=== PATIENT | female | born 1995 | race American Indian/Alaskan Native ===

== ENCOUNTER 2017-07-29 11:05 | Emergency (ER) | payer SELFPAY ==
[2017-07-29 12:04] VITALS: BP 109/67
[2017-07-29] MEDS ORDERED: DUONEB *Not for PRN Use IH ONE (12:14)
--- NOTE | 2017-07-29 12:46 | Emergency Department Report ---
ED Asthma HPI - General Chief Complaint: Adult Asthma Stated Complaint: ASTHMA WHEEZING Time Seen by Provider: 07/29/17 12:31 Source: patient, old records reviewed Mode of arrival: Ambulatory Limitations: No Limitations - History of Present Illness -: Gradual, days(s) Asthma History: childhood onset Severity: mild Context: recent URI Associated Symptoms: dry cough. denies: productive cough, fever (CHILLS REPORTED), chest pain, hemoptysis, leg edema, syncope - Related Data Previous Rx's Medication Instructions Recorded Last Taken Type ALBUTEROL Inhaler [ProAir HFA 2 puff IH QID PRN #1 inhalation 07/29/17 Unknown Rx Inhaler] Amoxicillin 500 mg PO BID #20 capsule 07/29/17 Unknown Rx Fluticasone [Flonase] 1 spray NS QDAY #1 bottle 07/29/17 Unknown Rx predniSONE [Deltasone] 20 mg PO DAILY #5 tablet 07/29/17 Unknown Rx Allergies Allergy/AdvReac Type Severity Reaction Status Date / Time No Known Allergies Allergy Verified 04/06/14 01:42 ED Review of Systems ROS: Stated complaint: FLU LIKE SYMPTOMS Other details as noted in HPI Comment: All other systems reviewed and negative Constitutional: chills. denies: fever ENT: denies: ear pain, throat pain Respiratory: cough, wheezing. denies: orthopnea, shortness of breath, SOB with exertion, SOB at rest, stridor Cardiovascular: denies: chest pain, palpitations ED Past Medical Hx - Past Medical History Hx Hypertension: No Hx Congestive Heart Failure: No Hx Diabetes: No Hx Deep Vein Thrombosis: No Hx Renal Disease: No Hx Sickle Cell Disease: No Hx Seizures: No Hx Asthma: Yes Hx COPD: No Hx HIV: No - Surgical History Additional Surgical History: - Social History Smoking Status: Never Smoker Substance Use Type: None - Medications Home Medications: Home Medications Medication Instructions Recorded Confirmed Last Taken Type ALBUTEROL Inhaler [ProAir HFA 2 puff IH QID PRN #1 inhalation 07/29/17 Unknown Rx Inhaler] Amoxicillin 500 mg PO BID #20 capsule 07/29/17 Unknown Rx Fluticasone [Flonase] 1 spray NS QDAY #1 bottle 07/29/17 Unknown Rx predniSONE [Deltasone] 20 mg PO DAILY #5 tablet 07/29/17 Unknown Rx ED Physical Exam - General Limitations: No Limitations General appearance: alert - Head Head exam: Present: atraumatic - Eye Eye exam: Present: normal appearance, PERRL - ENT ENT exam: Present: mucous membranes moist - Neck Neck exam: Present: normal inspection - Respiratory Respiratory exam: Present: normal lung sounds bilaterally, wheezes. Absent: respiratory distress, rales, rhonchi, stridor, chest wall tenderness, accessory muscle use, decreased breath sounds, prolonged expiratory - Cardiovascular Cardiovascular Exam: Present: regular rate, normal rhythm - GI/Abdominal GI/Abdominal exam: Present: soft - Rectal Rectal exam: Present: deferred - Extremities Exam Extremities exam: Present: normal inspection - Back Exam Back exam: Present: normal inspection - Neurological Exam Neurological exam: Present: alert, oriented X3, CN II-XII intact, normal gait, reflexes normal - Psychiatric Psychiatric exam: Present: normal affect, normal mood - Skin Skin exam: Present: warm, dry, intact ED Course Vital Signs 07/29/17 07/29/17 07/29/17 12:00 12:55 13:08 Temperature 98.4 F Pulse Rate 110 H Pulse Rate [ 110 H 112 H Anterior Bilateral Throughout] Respiratory 18 Rate Respiratory 18 18 Rate [Anterior Bilateral Throughout] Blood Pressure 109/67 O2 Sat by Pulse 100 Oximetry - Reevaluation(s) Reevaluation #1: 07/29/17 13:15 improved p tx vss no sob playing on phone medicated dc home w dc poc ED Medical Decision Making - Medical Decision Making SEE NOTE - Differential Diagnosis ASTHMA AE Critical care attestation.: If time is entered above; I have spent that time in minutes in the direct care of this critically ill patient, excluding procedure time. ED Disposition Clinical Impression: Asthma, Asthma with acute exacerbation Disposition: DC-01 TO HOME OR SELFCARE Is pt being admited?: No Does the pt Need Aspirin: No Condition: Stable Instructions: Asthma (ED) Prescriptions: ALBUTEROL Inhaler [ProAir HFA Inhaler] 2 puff IH QID PRN #1 inhalation PRN Reason: Shortness Of Breath Amoxicillin 500 mg PO BID #20 capsule Fluticasone [Flonase] 1 spray NS QDAY #1 bottle predniSONE [Deltasone] 20 mg PO DAILY #5 tablet Referrals: PRIMARY CARE, [Primary Care Provider] - 3-5 Days MIRTHA HEARD MD [Staff Physician] - 3-5 Days Time of Disposition: 12:46
== END 2017-07-29 13:51 | disposition home or self-care (01) ==
LOC: ED 11:05
DX: J45.901 Unspecified asthma with (acute) exacerbation (principal)
CPT/HCPCS: 94640; 96372; 99282; J2930

== ENCOUNTER 2018-02-07 06:30 | Emergency (ER) | payer OTHER ==
[2018-02-07 06:42] VITALS: BP 102/64
[2018-02-07 07:13] LABS: Basophils % (Auto) 0.5 % (0.0-1.8); Eosinophils # (Auto) 0.2 K/mm3 (0.0-0.4); Eosinophils % (Auto) 3.6 % (0.0-4.3); Hematocrit 39.9 % (30.3-42.9); Hemoglobin 13.3 gm/dl (10.1-14.3); Lymphocytes # (Auto) 2.6 K/mm3 (1.2-5.4); Lymphocytes % (Auto) 37.5 % (13.4-35.0); Mean Corpuscular HGB Conc 33 % (30-34); Mean Corpuscular Hemoglobin 29 pg (28-32); Mean Corpuscular Volume 86 fl (79-97); Monocytes # (Auto) 0.4 K/mm3 (0.0-0.8); Monocytes % (Auto) 6.3 % (0.0-7.3); Platelet Count 209 K/mm3 (140-440); Red Blood Count 4.67 M/mm3 (3.65-5.03); Red Cell Distribution Width 13.8 % (13.2-15.2)
[2018-02-07 07:26] LABS: Bilirubin,Urine NEG (Negative); Blood,Urine NEG (Negative); Color,Urine Yellow (Yellow); Mucus,Urine 2+ /HPF; Urobilinogen,Urine < 2.0 mg/dL (<2.0)
[2018-02-07 07:30] LABS: Alanine Aminotransferase 14 units/L (7-56); Albumin 4.4 g/dL (3.9-5); BUN/Creatinine Ratio 21; Blood Urea Nitrogen 15 mg/dL (7-17); Calcium 9.5 mg/dL (8.4-10.2); Hemolysis Index 4
[2018-02-07 07:36] LABS: HCG Qualitative,Urine Negative (Negative)
--- NOTE | 2018-02-07 10:03 | Emergency Department Report ---
ED Female HPI - General Chief complaint: Abdominal Pain Stated complaint: ABD PAIN Time Seen by Provider: 02/07/18 09:12 Source: patient Mode of arrival: Ambulatory Limitations: No Limitations - History of Present Illness Initial comments: Ms elias is a 23 year-old woman without PMH who presents with pelvic pain. Is concerned that her IUD is out of position. She can still feel the strings, but feels different in her lower abdomen. Intermittent vaginal discharge. LMP . Pain in her lower abdomen is cramping and has been present for 2-3 days. No pain with urination. no blood in urine. Unrelated endorses some light headedness in the last 2-3 days, none now. Has had IUD x 3 years. MD Complaint: pelvic pain - Related Data Previous Rx's Medication Instructions Recorded Last Taken Type ALBUTEROL Inhaler [ProAir HFA 2 puff IH QID PRN #1 inhalation 07/29/17 Unknown Rx Inhaler] Amoxicillin 500 mg PO BID #20 capsule 07/29/17 Unknown Rx Fluticasone [Flonase] 1 spray NS QDAY #1 bottle 07/29/17 Unknown Rx predniSONE [Deltasone] 20 mg PO DAILY #5 tablet 07/29/17 Unknown Rx Allergies Allergy/AdvReac Type Severity Reaction Status Date / Time No Known Allergies Allergy Verified 02/07/18 06:37 ED Review of Systems ROS: Stated complaint: ABD PAIN Other details as noted in HPI Comment: All other systems reviewed and negative ED Past Medical Hx - Past Medical History Hx Hypertension: No Hx Congestive Heart Failure: No Hx Diabetes: No Hx Deep Vein Thrombosis: No Hx Renal Disease: No Hx Sickle Cell Disease: No Hx Seizures: No Hx Asthma: Yes Hx COPD: No Hx HIV: No - Surgical History Past Surgical History?: Yes Additional Surgical History: - Social History Smoking Status: Never Smoker Substance Use Type: Alcohol - Medications Home Medications: Home Medications Medication Instructions Recorded Confirmed Last Taken Type ALBUTEROL Inhaler [ProAir HFA 2 puff IH QID PRN #1 inhalation 07/29/17 Unknown Rx Inhaler] Amoxicillin 500 mg PO BID #20 capsule 07/29/17 Unknown Rx Fluticasone [Flonase] 1 spray NS QDAY #1 bottle 07/29/17 Unknown Rx predniSONE [Deltasone] 20 mg PO DAILY #5 tablet 07/29/17 Unknown Rx ED Physical Exam - General Limitations: No Limitations General appearance: alert, in no apparent distress - Head Head exam: Present: atraumatic, normocephalic - Eye Eye exam: Present: normal appearance - ENT ENT exam: Present: mucous membranes moist - Neck Neck exam: Present: normal inspection - Respiratory Respiratory exam: Present: normal lung sounds bilaterally. Absent: respiratory distress - Cardiovascular Cardiovascular Exam: Present: regular rate, normal rhythm. Absent: systolic murmur, diastolic murmur, rubs, gallop - GI/Abdominal GI/Abdominal exam: Present: soft, normal bowel sounds - External exam: Present: normal external exam. Absent: erythema, swelling, lesions Speculum exam: Present: vaginal discharge, cervical discharge, other (IUD strings in place. No CMT). Absent: erythema, vaginal bleeding, foreign body Bi-manual exam: Present: normal bi-manual exam. Absent: cervical motion tendernes, adnexal tenderness, adnexal mass, uterine enlargement - Extremities Exam Extremities exam: Present: normal inspection - Back Exam Back exam: Present: normal inspection - Neurological Exam Neurological exam: Present: alert, oriented X3 - Psychiatric Psychiatric exam: Present: normal affect, normal mood - Skin Skin exam: Present: warm, dry, intact, normal color. Absent: rash ED Course Vital Signs 02/07/18 06:38 Temperature 98.3 F Pulse Rate 88 Respiratory 18 Rate Blood Pressure 102/64 O2 Sat by Pulse 100 Oximetry ED Medical Decision Making - Lab Data Result diagrams: 02/07/18 06:57 02/07/18 06:56 Lab Results 02/07/18 02/07/18 02/07/18 Range/Units 06:56 06:57 07:04 WBC 6.8 (4.5-11.0) K/mm3 RBC 4.67 (3.65-5.03) M/mm3 Hgb 13.3 (10.1-14.3) gm/dl Hct 39.9 (30.3-42.9) % MCV 86 (79-97) fl MCH 29 (28-32) pg MCHC 33 (30-34) % RDW 13.8 (13.2-15.2) % Plt Count 209 (140-440) K/mm3 Lymph % (Auto) 37.5 H (13.4-35.0) % [place] % (Auto) 6.3 (0.0-7.3) % Eos % (Auto) 3.6 (0.0-4.3) % Baso % (Auto) 0.5 (0.0-1.8) % Lymph # 2.6 (1.2-5.4) K/mm3 [place] # 0.4 (0.0-0.8) K/mm3 Eos # 0.2 (0.0-0.4) K/mm3 Baso # 0.0 (0.0-0.1) K/mm3 Seg Neutrophils % 52.1 (40.0-70.0) % Seg Neutrophils # 3.6 (1.8-7.7) K/mm3 Sodium 141 (137-145) mmol/L Potassium 4.0 (3.6-5.0) mmol/L Chloride 104.9 (98-107) mmol/L Carbon Dioxide 24 (22-30) mmol/L Anion Gap 16 mmol/L BUN 15 (7-17) mg/dL Creatinine 0.7 (0.7-1.2) mg/dL Estimated GFR > 60 ml/min BUN/Creatinine Ratio 21 % Glucose 80 (65-100) mg/dL Calcium 9.5 (8.4-10.2) mg/dL Total Bilirubin 0.80 (0.1-1.2) mg/dL AST 16 (5-40) units/L ALT 14 (7-56) units/L Alkaline Phosphatase 82 (35-129) units/L Total Protein 7.4 (6.3-8.2) g/dL Albumin 4.4 (3.9-5) g/dL Albumin/Globulin Ratio 1.5 % Urine Color Yellow (Yellow) Urine Turbidity Hazy (Clear) Urine pH 5.0 (5.0-7.0) Ur Specific [place] 1.017 (1.003-1.030) Urine Protein 30 mg/dl (Negative) mg/dL Urine Glucose (UA) Neg (Negative) mg/dL Urine Ketones Neg (Negative) mg/dL Urine Blood Neg (Negative) Urine Nitrite Neg (Negative) Urine Bilirubin Neg (Negative) Urine Urobilinogen < 2.0 (<2.0) mg/dL Ur Leukocyte Esterase Neg (Negative) Urine WBC (Auto) 2.0 (0.0-6.0) /HPF Urine RBC (Auto) 1.0 (0.0-6.0) /HPF U Epithel Cells (Auto) 5.0 (0-13.0) /HPF Urine Mucus 2+ /HPF Urine HCG, Qual Negative (Negative) Microbiology 02/07/18 Unknown Vaginal Wet Prep - Final - Medical Decision Making Ms elias is a 23 year-old woman with pelvic pain. thinks her IUD is out of place. In place by exam, no uterine or cervical ttp. concerned she may have been exposed to STI, elects for empiric treatment of GC/CT. Wet prep negative. Not . Could be cramping prior to menses. GC/CT pending. Will refer her back to [facility] if pain persists. Will check back in 3-5 days for results of testing. Critical care attestation.: If time is entered above; I have spent that time in minutes in the direct care of this critically ill patient, excluding procedure time. ED Disposition Clinical Impression: Abdominal pain Qualifiers: Abdominal location: lower abdomen, unspecified Qualified Code(s): R10.30 - Lower abdominal pain, unspecified Disposition: DC-01 TO HOME OR SELFCARE Is pt being admited?: No Condition: Stable Instructions: Abdominal Pain (ED) Referrals: PRIMARY CARE, [Primary Care Provider] - 3-5 Days (See your [facility])
[2018-02-07] MEDS ORDERED: XYLOCAINE 1% MPF 5 mL INFILTRATI ONE (10:13)
[2018-02-07] MEDS ORDERED: ROCEPHIN IM ONE (10:13)
[2018-02-07] MEDS ORDERED: ZITHROMAX PO ONE (10:14)
== END 2018-02-07 11:26 | disposition home or self-care (01) ==
LOC: ED 06:30
DX: R10.2 Pelvic and perineal pain (principal); N89.8 Other specified noninflammatory disorders of vagina; R42 Dizziness and giddiness; J45.909 Unspecified asthma, uncomplicated
CPT/HCPCS: 36415; 80053; 81001; 81025; 85025; 87210; 87591; 96372; 99284; J0696

== ENCOUNTER 2020-09-24 11:17 | Emergency (ER) | payer SELFPAY ==
[2020-09-24 11:37] VITALS: BP 116/64
--- NOTE | 2020-09-24 11:43 | Emergency Department Report ---
ED General Adult HPI - General Chief complaint: Adult Asthma Stated complaint: ASTHMA/WHEEZING Time Seen by Provider: 09/24/20 11:33 Source: patient Mode of arrival: Ambulatory Limitations: No Limitations - History of Present Illness Initial comments: 25 yo AA F pt presents with complaints of intermittent asth,a exacerbations x 1 month. She reports that she is having wheezing, coughing, and mild OSB that occurs monthly at night. Pt states her symptoms do resolve when she uses her inhaler. She denies any current SOB, chest pain, hemoptysis, leg pain/swelling, abdominal pain, N/V/D, or fever/chills/sweats. She states this feels like her asthma and is also requesting a new nebulizer machine. - Related Data Previous Rx's Medication Instructions Recorded Last Taken Type Amoxicillin 500 mg PO BID #20 capsule 07/29/17 Unknown Rx Fluticasone [Flonase] 1 spray NS QDAY #1 bottle 07/29/17 Unknown Rx predniSONE [Deltasone] 20 mg PO DAILY #5 tablet 07/29/17 Unknown Rx Albuterol Mdi (or & Nicu Only) 2 puff IH Q4H PRN #1 inhalation 09/24/20 Unknown Rx [ProAir HFA Inhaler] Albuterol Sulfate [Albuterol 0.63% 0.63 mg IH TID PRN #1 box 09/24/20 Unknown Rx NEBS] Nebulizer [Compact Compressor 1 each MC QID PRN #1 each 09/24/20 Unknown Rx Nebulizer] Prednisone [predniSONE 10 mg 10 mg PO .TAPER #1 tab.ds.pk 09/24/20 Unknown Rx (6-Day Pack, 21 Tabs)] Allergies Allergy/AdvReac Type Severity Reaction Status Date / Time No Known Allergies Allergy Verified 02/07/18 06:37 ED Review of Systems ROS: Stated complaint: ASTHMA/WHEEZING Other details as noted in HPI Constitutional: denies: chills, fever, malaise ENT: denies: throat pain Respiratory: see HPI Cardiovascular: denies: chest pain, palpitations, edema, syncope Endocrine: denies: excessive sweating Gastrointestinal: as per HPI Musculoskeletal: denies: back pain Skin: denies: lesions, change in color Neurological: denies: headache ED Past Medical Hx - Past Medical History Previous Medical History?: Yes Hx Hypertension: No Hx Congestive Heart Failure: No Hx Diabetes: No Hx Deep Vein Thrombosis: No Hx Renal Disease: No Hx Sickle Cell Disease: No Hx Seizures: No Hx Asthma: Yes Hx COPD: No Hx HIV: No - Surgical History Past Surgical History?: Yes Additional Surgical History: - Social History Smoking Status: Never Smoker Substance Use Type: Alcohol - Medications Home Medications: Home Medications Medication Instructions Recorded Confirmed Last Taken Type Amoxicillin 500 mg PO BID #20 capsule 07/29/17 Unknown Rx Fluticasone [Flonase] 1 spray NS QDAY #1 bottle 07/29/17 Unknown Rx predniSONE [Deltasone] 20 mg PO DAILY #5 tablet 07/29/17 Unknown Rx Albuterol Mdi (or & Nicu Only) 2 puff IH Q4H PRN #1 inhalation 09/24/20 Unknown Rx [ProAir HFA Inhaler] Albuterol Sulfate [Albuterol 0.63% 0.63 mg IH TID PRN #1 box 09/24/20 Unknown Rx NEBS] Nebulizer [Compact Compressor 1 each MC QID PRN #1 each 09/24/20 Unknown Rx Nebulizer] Prednisone [predniSONE 10 mg 10 mg PO .TAPER #1 tab.ds.pk 09/24/20 Unknown Rx (6-Day Pack, 21 Tabs)] ED Physical Exam - General Limitations: No Limitations General appearance: alert, in no apparent distress - Head Head exam: Present: atraumatic, normocephalic, normal inspection - Eye Eye exam: Present: normal appearance. Absent: scleral icterus - ENT ENT exam: Present: normal exam - Neck Neck exam: Present: normal inspection - Respiratory Respiratory exam: Present: normal lung sounds bilaterally. Absent: respiratory distress, chest wall tenderness - Cardiovascular Cardiovascular Exam: Present: regular rate, normal rhythm. Absent: systolic murmur, diastolic murmur, rubs, gallop - Extremities Exam Extremities exam: Absent: calf tenderness (no swelling or tenderness noted to legs bilaterally ) - Neurological Exam Neurological exam: Present: alert, oriented X3, normal gait - Psychiatric Psychiatric exam: Present: normal affect, normal mood - Skin Skin exam: Present: warm, dry, intact, normal color. Absent: rash, diaphoretic ED Course Vital Signs 09/24/20 11:34 Temperature 98.4 F Pulse Rate 83 Respiratory 20 Rate Blood Pressure 116/64 O2 Sat by Pulse 100 Oximetry ED Medical Decision Making - Medical Decision Making 25 yo AA F pt presents with complaints of intermittent asth,a exacerbations x 1 month. She reports that she is having wheezing, coughing, and mild OSB that occurs monthly at night. Pt states her symptoms do resolve when she uses her inhaler. She denies any current SOB, chest pain, hemoptysis, leg pain/swelling, abdominal pain, N/V/D, or fever/chills/sweats. She states this feels like her asthma and is also requesting a new nebulizer machine. Heart and lung exam are normal. Given pt's hx and resolution of symptoms with inhaler and normal vitals, I do not suspect any infectious processes or PE. Will d/c home with neb prednisone, albuterol, and neb machine. Pt informed to follow up with PCP in 3 days. Discussed signs and symptoms that should prompt immediate return to the ED in detail with pt who verbalizes understanding. She is well appearing and stable for d/c home. Critical care attestation.: If time is entered above; I have spent that time in minutes in the direct care of this critically ill patient, excluding procedure time. ED Disposition Clinical Impression: Asthma exacerbation Qualifiers: Asthma severity: mild Asthma persistence: intermittent Qualified Code(s): J45.21 - Mild intermittent asthma with (acute) exacerbation Disposition: TO HOME OR SELFCARE Is pt being admited?: No Condition: Stable Instructions: Asthma, Adult Additional Instructions: I also recommend over the counter loratadine (Claritin) or cetirizine (Zyrtec) daily. Prescriptions: Albuterol Sulfate [Albuterol 0.63% NEBS] 0.63 mg IH TID PRN #1 box PRN Reason: Wheezing Nebulizer [Compact Compressor Nebulizer] 1 each MC QID PRN #1 each PRN Reason: shortness of breath Prednisone [predniSONE 10 mg (6-Day Pack, 21 Tabs)] 10 mg PO .TAPER #1 tab.ds.pk Albuterol Mdi (or & Nicu Only) [ProAir HFA Inhaler] 2 puff IH Q4H PRN #1 inhalation PRN Reason: Shortness Of Breath Referrals: [facility] [Provider Group] - 3-5 Days
== END 2020-09-24 12:00 | disposition home or self-care (01) ==
LOC: ED 11:17
DX: J45.901 Unspecified asthma with (acute) exacerbation (principal); Z79.899 Other long term (current) drug therapy; Z98.890 Other specified postprocedural states
CPT/HCPCS: 99281

== ENCOUNTER 2020-11-08 11:07 | Emergency (ER) | payer OTHER ==
[2020-11-08 12:11] VITALS: BP 114/60
[2020-11-08] MEDS ORDERED: TETANUS,DIPH,PERTUSS(ACELL) VACCINE 0.5 ML SYRINGE IM ONE (14:01)
[2020-11-08] MEDS ORDERED: NEOMY 3.5 MG/BACIT 400 UNITS/POLY B 5000 UNITS/GM OINT PACKET TP ONE (14:01)
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
== END 2020-11-08 16:01 | disposition home or self-care (01) ==
LOC: ED 11:07
DX: S80.12XA Contusion of left lower leg, initial encounter (principal); S61.401A Unspecified open wound of right hand, initial encounter; Z79.899 Other long term (current) drug therapy; V49.69XA Unspecified car occupant injured in collision with other motor vehicles in traffic accident, initial encounter; Y93.89 Activity, other specified; Y92.410 Unspecified street and highway as the place of occurrence of the external cause; Y99.8 Other external cause status
CPT/HCPCS: 73110; 73130; 73590; 90471; 90715; 99283; A6250

== ENCOUNTER 2021-12-07 16:59 | Emergency (ER) | payer SELFPAY ==
[2021-12-07 18:12] VITALS: BP 108/55
== END 2021-12-07 22:45 | disposition left against medical advice (07) ==
LOC: ED 16:59
DX: R10.9 Unspecified abdominal pain (principal); Z53.21 Procedure and treatment not carried out due to patient leaving prior to being seen by health care provider